=== PATIENT | female | born 1975 | race Caucasian/White ===

== ENCOUNTER 2020-10-23 09:15 | Emergency (ER) | payer OTHER ==
--- NOTE | 2020-10-23 10:00 | RAD ---
EXAM: Portable chest PROVIDED CLINICAL HISTORY: Chest pain COMPARISON: None FINDINGS: Cardiac and mediastinal silhouette is within normal limits. No focal consolidation, pleural fluid or pneumothorax evident. Left subclavian cardiac pacing device is noted, with lead tips overlying expected locations of RA and RV. IMPRESSION: No evidence for an acute cardiopulmonary process.
[2020-10-23 10:10] LABS: Hemoglobin 9.8 g/dL (12.0-16.0); Mean Corpuscular HGB CONC 31.1 g/dL (32.0-36.0); Mean Corpuscular Hemoglobin 24.4 pg (27.0-31.0); Mean Corpuscular Volume 78.3 fL (78.0-98.0); Mean Platelet Volume 5.1 fL (7.4-10.4); Platelet Count 261 thou/uL (130-400); RBC Distribution Width 15.9 % (11.5-14.5); Red Blood Cell (RBC) Count 4.02 mill/uL (4.20-5.40); White Blood Cell (WBC) Count 6.9 thou/uL (4.8-10.8)
[2020-10-23 10:11] LABS: #Eosinphils 0.1 thou/uL (0.0-0.7); #Lymphocytes 1.4 thou/uL (1.20-3.40); #Monocytes 0.6 thou/uL (0.11-0.59); #Neutrophils 4.8 thou/uL (1.40-6.50); %Basophils 0.4 % (0.0-1.0); %Lymphocytes 20.3 % (21.0-51.0); %Monocytes 8.5 % (0.0-10.0); %Neutrophils 69.9 % (42.0-75.0)
[2020-10-23] MEDS ORDERED: Aspirin Chewable 81 MG TAB ONE (10:11)
[2020-10-23] MEDS ORDERED: Fentanyl 100 MCG/2 ML VIAL ONE ×2 (10:11→13:30)
[2020-10-23 10:23] LABS: Digoxin Less than 0.15 ng/mL (0.8-2.0)
[2020-10-23 10:26] LABS: ALT (SGPT) 11 U/L (8-55); AST (SGOT) 13 U/L (5-34); Albumin 3.9 g/dL (3.5-5.0); Alkaline Phosphatase 94 U/L (40-110); Anion Gap 18 mmol/L (10-20); BUN (Urea Nitrogen) 6 mg/dL (7.0-18.7); Bilirubin, Total 0.7 mg/dL (0.2-1.2); CK (CPK) 24 U/L (29-168); Calc. Creatinine Clearance 0 mL/min (70-130); Calcium 8.9 mg/dL (7.8-10.44); Carbon Dioxide 22 mmol/L (22-29); Chloride 105 mmol/L (98-107); Globulin 3.2 g/dL (2.4-3.5); Glucose 103 mg/dL (70-105); Lipase 28 U/L (8-78); Potassium 3.5 mmol/L (3.5-5.1); Protein, Total 7.1 g/dL (6.0-8.3); Sodium 141 mmol/L (136-145)
[2020-10-23 10:42] LABS: Hypochromia SLIGHT = 6-15 cells (100X) (0-5/hpf); MDiff Complete? YES; Microcytosis SLIGHT = 6-15 cells (100X) (0-5/hpf); Ovalocytes SLIGHT = 2-5 cells (100X) (0-1/hpf); Platelet Morphology Comment Appears Adequate; Polychromasia SLIGHT = 2-3 cells (100X) (0-2/hpf)
[2020-10-23] MEDS ORDERED: Iopamidol-370 76% 500 ML 1 ML ONE (12:50)
[2020-10-23 13:49] LABS: Troponin I Less than 0.010 ng/mL (< 0.028)
--- NOTE | 2020-10-23 14:42 | CT ---
CT PULMONARY ANGIOGRAM WITH IV CONTRAST AND 3D POSTPROCESSIN10/23/20 HISTORY: Chest pain. Positive for COVID-19 on 10/15/20. FINDINGS: There is good contrast opacification of the pulmonary arterial vasculature without filling defects to suggest pulmonary embolism. There are vascular calcifications without evidence of aneurysmal dilatat ion of the thoracic aorta. No thoracic aortic dissection is seen. No pleural or pericardial effusions are identified. No pneumothoraces, focal areas of consolidation or lung masses are identified. There are minimal ground glass opacities in the peripheral aspect of the left lower lobe. The tracheobronc hial tree is patent. There are degenerative changes in the spine. Upper abdominal tomograms demonstra te postop changes of cholecystectomy and gastric bypass surgery. IMPRESSION: No CT evidence of pulmonary embolism. POS: OFF
== END 2020-10-23 14:33 ==
LOC: EEVIPCON 09:15 → ERS 09:15
DX: U07.1 COVID-19 (principal); R07.89 Other chest pain; I48.91 Unspecified atrial fibrillation; I10 Essential (primary) hypertension; Z79.899 Other long term (current) drug therapy
CPT/HCPCS: 36415; 71045; 71275; 80053; 80162; 82550; 83605; 83690; 83735; 83880; 84484; 85025; 85379; 87040; 93005; 94760; J3010; Q9967